=== PATIENT | male | born 1995 | race Caucasian/White ===

== ENCOUNTER 2017-01-10 10:54 | Emergency (ER) | payer OTHER ==
[~2017-01-10 10:54] MED LIST: AMOXICILLIN500 M1; BACTRIM DS TABL1 TA2 PO; CETIRIZINE PO; CIPRO PO; DICLOFENAC PO; ELOCON TOP; IBUPROFEN800 MG; LEVAQUIN PO; LORTAB 7.5-3251 EACH PO; MOTRIN400 MG PO; OMEPRAZOLE20 M2 PO; PERCOCET; PROMETHAZINE HC25 MG PO; PYRIDIUM PO; ROBAXIN PO; ZOFRAN PO; ZYRTEC-D T1 TAB.SR1 PO
[2017-01-10] MEDS ORDERED: ZYRTEC-D TABLE1 EACH PO (10:55)
== END 2017-01-10 11:50 | disposition home or self-care (01) ==
LOC: SED 10:54
DX: J06.9 Acute upper respiratory infection, unspecified (principal); F41.9 Anxiety disorder, unspecified; F17.210 Nicotine dependence, cigarettes, uncomplicated
CPT/HCPCS: 87651; 99282

== ENCOUNTER 2017-01-25 16:58 | Emergency (ER) | payer OTHER ==
[~2017-01-25 16:58] MED LIST changes: +ZYRTEC-D TABLE1 EACH PO
== END 2017-01-25 17:35 | disposition home or self-care (01) ==
LOC: SED 16:58
DX: L23.7 Allergic contact dermatitis due to plants, except food (principal); L03.114 Cellulitis of left upper limb; L03.113 Cellulitis of right upper limb; L03.319 Cellulitis of trunk, unspecified; F17.210 Nicotine dependence, cigarettes, uncomplicated; Z79.899 Other long term (current) drug therapy
CPT/HCPCS: 99282

== ENCOUNTER 2017-03-26 15:40 | Emergency (ER) | payer OTHER ==
--- NOTE | ~2017-03-26 | CT2 ---
[facility]. [facility] A Service of [facility] RADIOLOGY TEXT RESULTS PATIENT: DEON HANNON LOCATION: SED : [birth year] UNIT #: [id number] AGE: [address]: Genesis Arias SEX: M ORDER DR: [id number] [address] [address] [id number] E MR#: [id number] Acc #: [id number] NAME: DEON HANNON : 1995 SEX: M STUDY DATE/TIME: 03/26/2017 18:13 UNIT: SED ROOM: STUDY DESCRIPTION: CT Abd and Pelv W Cont Attending Physician: Genesis Arias Pa-C Ordering Physician: Physician Non-Staff Primary Care Physician: Jc Watkins M.D. MEDICAL IMAGING REPORT This report is preliminary unless electronic signature is present. EXAM Abdomen and pelvis CT with contrast, 03/26/2017. INDICATIONS 22-year-old male with right lower quadrant abdominal pain since last night. History of acid reflux, anxiety and allergies. TECHNIQUE Contrast enhanced CT of the abdomen and pelvis was performed and compared with 07/20/2013. This CT exam was performed with one or more of the following radiation dose reduction techniques: automatic exposure control, adjustment of mA and/or kV according to patient size, and iterative reconstruction. FINDINGS CT ABDOMEN Exam degraded by noncontrast technique. Included lung bases are clear. Aorta unremarkable. The solid abdominal organs are unremarkable. Incidental left renal cyst measures [address] PELVIS Bladder and prostate unremarkable. No free fluid or drainable fluid collection in the pelvis. Bowel and appendix unremarkable. Inguinal canal is normal. No suspicious bone lesion. IMPRESSION 1. Negative contrast-enhanced CT of the abdomen and pelvis. The appendix is normal. No bowel obstruction or focal area of inflammatory change. 2. Incidental left renal cyst. 1. [facility] A Service [facility] RADIOLOGY TEXT RESULTS PATIENT: DEON HANNON LOCATION: SED : [birth year] UNIT #: [id number] AGE: [address]: Genesis Arias SEX: M ORDER DR: Dictated by... Macho Plasencia M.D. THIS IS AN ELECTRONICALLY VERIFIED REPORT Macho Plasencia M.D. at 03/27/2017 2:19 PM DAVIN/paco TD: 03/27/2017 09:42 JOB #: [id number] MEDICAL IMAGING REPORT Page 1 of 1
[2017-03-26 16:24] LABS: URINE SOURCE CLEAN CATCH
[2017-03-26 16:26] LABS: URINE APPEARANCE CLEAR; URINE BILIRUBIN NEG (NEG); URINE BLOOD NEG (NEG); URINE COLOR YELLOW; URINE GLUCOSE NEG (NORM); URINE KETONE NEG (NEG); URINE LEUKOCYTE ESTERASE NEG (NEG); URINE NITRATE NEG (NEG); URINE PROTEIN NEG (NEG); URINE SPECIFIC GRAVITY >=1.030 (1.003-1.035); URINE UROBILINOGEN 0.2 MG/DL (NORM)
[2017-03-26 16:27] LABS: BASOPHIL% 0.3 % (0-2.5); EOSINOPHIL# 0.2 X10e3 (0-0.7); HEMATOCRIT 44.9 % (38.0-50.0); HEMOGLOBIN 15.3 gm/dL (13.0-16.0); LYMPHOCYTE# 3.7 X10e3 (1.0-3.5); LYMPHOCYTE% 43.1 % (17.0-45.0); MEAN CELL VOLUME 84.9 FL (83-96); MEAN CORPUSCULAR HGB CONC 34.1 g/dL (30-36); MEAN PLATELET VOLUME 9.4 FL (6.5-11.5); MONOCYTE# 0.7 X10e3 (0-1.0); NEUTROPHIL% 46.6 % (40-75); PLATELET COUNT 227 X10e3 (140-420); RED BLOOD COUNT 5.29 X10e (3.90-5.60); RED CELL DISTRIBUTION WIDTH 13.2 % (11.0-15.5); WHITE BLOOD COUNT 8.6 X10e3 (4.0-10.5)
[2017-03-26 16:33] LABS: DIFF IND NO
[2017-03-26 16:34] LABS: MICRO INDICATED? NO
[2017-03-26 16:46] LABS: ALBUMIN SERUM 4.5 g/dL (3.5-5.0); BILIRUBIN, DIRECT 0.1 mg/dL (0.0-0.2); BILIRUBIN,INDIRECT 0.7 mg/dL (0.0-0.9); BILIRUBIN,TOTAL 0.8 mg/dL (0.2-2.0); BUN/CREATININE RATIO 21.25; CALCIUM SERUM 9.2 mg/dL (8.4-10.2); CREATININE SERUM 0.8 mg/dL (0.6-1.4); GLOM FILT RATE Estimated 127.7 mL/min (>60); PROTEIN TOTAL SERUM 7.9 g/dL (6.0-8.3)
== END 2017-03-26 19:10 | disposition home or self-care (01) ==
LOC: SED 15:40
PROVIDERS: Physician Assistant
DX: R10.31 Right lower quadrant pain (principal); K21.9 Gastro-esophageal reflux disease without esophagitis; F41.9 Anxiety disorder, unspecified; F17.200 Nicotine dependence, unspecified, uncomplicated; Z79.899 Other long term (current) drug therapy
CPT/HCPCS: 36415; 74177; 80048; 80076; 81003; 83690; 85025; 96361; 96374; 96375; 99284; J2270; J2405; Q9967